=== PATIENT | female | born 1950 | race Caucasian/White ===

== ENCOUNTER 2020-02-21 14:27 | Inpatient (IN) | payer MEDICARE, OTHER ==
[~2020-02-21] VITALS: Ht 162.6 cm; Wt 77.2 kg
--- NOTE | 2020-02-21 15:15 | NUR ---
PATIENT ADMITED INTO ROOM 323, DIRECT ADMIT FROM 'S OFFICE. PATIENT HAS A SCHEDULED PERIPHERAL ANGIO GRAM TODAY. PATIENT HAS SEVERE PAD WITH CHRONIC WOUND TO [facility]. PATIENT IS A NON-COMPLIENT DIABETIC. PATIENT IS VERY UNFAMILIAR WITH HER MEDICATIONS AND IS UNABLE TO TELL ME WHEN SHE LAST TOOK THEM. ON ADMIT PATIENT WAS AWAKE AND ALERT TO PERSON AND PLACE. DURING ADMISSION, PATIENT BECAME MORE DROWSY AND LESS ORIENTED. PATIENT IS A POOR HISTORIAN. WHEN ASKED IF SHE HAD A HYSTERECTOMY PATIENT STATED, "WELL, I DIDN'T WANT KID". WHEN ASKED IF AGAIN FOR CLARIFICATION PATIENT STATED, "WELL, I THINK I DID". HOSPITALIST AT BEDSIDE. HAVING DIFFICULTY OBTAINING H&P. PATIENT LIVES ALONE. CALLED PCP OFFICE BUT IT WAS CLOSED. CALLED ORTHO SHE HAS HAD PREVIOUS SURGERY TO THE E IN 2008, NOT MUCH HISTORY AVAILABLE AND NO REPORTED MEDICATIONS OR ALLERGIES AT THAT TIME. PATIENT FALLING ASLEEP DURING QUESTIONS FROM HOSPITALIST ANDREW
[2020-02-21 15:16] VITALS: BP 134/75; PULSE 129; TEMP 97.9
[2020-02-21] MEDS ORDERED: ELIQUIS 5MG PO (15:28)
[2020-02-21] MEDS ORDERED: ASPIRIN 81M81 MG/TA2 PO (15:29)
[2020-02-21] MEDS ORDERED: LASIX 20MG TABL20 MG PO (15:30)
[2020-02-21] MEDS ORDERED: NEURONTIN300 MG/CAP PO (15:31)
[2020-02-21] MEDS ORDERED: XANAX 0.5MG0.5 MG PO (15:32)
[2020-02-21] MEDS ORDERED: NORCO 325 MG-7.1 TAB PO (15:33)
[2020-02-21] MEDS ORDERED: KLOR-CON M2020 MEQ PO (15:34)
[2020-02-21] MEDS ORDERED: COMBIGAN 0.2%-0.5 ML OU (15:35)
[2020-02-21] MEDS ORDERED: LANTUS SOLOS100 U/ML SQ (15:36)
[2020-02-21] MEDS ORDERED: TRAVATAN Z 2.52.5 ML OU (15:37)
[2020-02-21] MEDS ORDERED: NOVOLOG FLEX100 U/ML SQ (15:38)
[2020-02-21] MEDS ORDERED: LOPID 600M600 MG/TAB PO (15:39)
[2020-02-21] MEDS ORDERED: MEVACOR10 MG PO (15:43)
[2020-02-21 16:36] LABS: PH 5 (5-8); SQUAMOUS EPITHELIAL None Seen /hpf; URINE APPEARANCE Clear; URINE BACTERIA Rare /hpf; URINE BILIRUBIN Negative (NEGATIVE); URINE BLOOD 1+ (NEGATIVE); URINE COLOR Yellow; URINE GLUCOSE 3+ (NEGATIVE); URINE KETONE 2+ (NEGATIVE); URINE LEUKOCYTE ESTERASE Negative (NEGATIVE); URINE NITRATE Negative (NEGATIVE); URINE PROTEIN(semi-quant) 1+ (NEGATIVE); URINE UROBILINOGEN Negative (NEGATIVE)
[2020-02-21 16:44] LABS: BASO # 0.1 (0.0-0.2); BASO % 0.6 % (0.0-2.0); EOS % 0.2 % (0-4.0); GRAN # 11.1 (1.4-6.5); GRAN % 88.4 % (42.2-75.2); HEMATOCRIT 41.1 % (37.0-47.0); HEMOGLOBIN 14.3 g/dl (12.5-16.0); LYMPH # 0.7 (1.2-3.4); LYMPH % 5.4 % (20.0-51.0); MEAN CELL VOLUME 87 fl (80.0-100.0); MEAN CORPUSCULAR HEMOGLOBIN 30 pg (27.0-31.0); MEAN CORPUSCULAR HGB CONC 35 g/dl (33.0-37.0); MONO # 0.6 (0.1-0.6); MONO % 5.1 % (1.7-9.3); PLATELET COUNT 309 K/mm3 (130-400); REDCELL DISTRIBUTION WIDTH-CV 11.4 % (11.5-14.5)
[2020-02-21 16:49] LABS: INR 1.1 (0.8-3.0); PROTHROMBIN TIME 12.9 SECONDS (9.7-12.8)
[2020-02-21 16:56] LABS: ALBUMIN 4.3 gm/dL (3.5-5.0); BILIRUBIN,TOTAL 0.7 mg/dL (0.0-1.0); CALCIUM 9.5 mg/dL (8.4-10.2); CREATININE, serum 0.74 (0.52-1.25); POTASSIUM 4.2 mmol/L (3.4-5.0); TOTAL PROTEIN 7.7 gm/dL (6.4-8.2)
--- NOTE | 2020-02-21 17:30 | NUR ---
WENT IN TO START IV FLUIDS, NS AT 125 INFUSING VIA PUMP INTO LEFT WRIST IV. PATIENT IS INCREASINGLY CONFUSED. PATIENT ASKING ABOUT VOIDING, AND NOW HAS NO MEMORY OF HER FLOYD. ON ADMISSION PATIENT REPORTED SHE ASKED FOR THE FLOYD BEFORE THE PERIPHERAL ANGIO GRAM DONE TODAY IN THE OFFICE. PATIENT HAS BEEN INCONTINENT OF BOWL X2. PATIENT IS VERY DROWSY. HR IN 120'S ON TELE. ALL OTHER VSS. BS WAS 332 ON ADMIT. HGB A1C OF 9.7. SEE HOSPITALIST ORDERS
--- NOTE | 2020-02-21 17:45 | NUR ---
RT CALLED AND NOW AT BEDSIDE TO OBTAIN ABG'S. RADIOLOGY ALSO CALLED AND NOW AT BEDSIDE TO TAKE PATIENT TO RADIOLOGY FOR CXR AND CT
[2020-02-21 17:55] LABS: ARTERIAL BLD GAS O2 SATURATION 95.5 % (92-100); ARTERIAL BLD GAS TCO2 CT 22.3; ARTERIAL BLOOD GAS BASE EXCESS -0.7 (-2-2); ARTERIAL BLOOD GAS HCO3 21.4 meq/L (22-26); ARTERIAL BLOOD GAS PCO2 28.5 mmHg (35-45); ARTERIAL BLOOD GAS PO2 70.9 mmHg (80-100); ARTERIAL BLOOD GAS pH 7.49 (7.35-7.45)
--- NOTE | 2020-02-21 17:55 | NUR ---
CALLED HOSPITALIST ANDREW [facility]. PATIENT OFF FLOOR CURRENTLY FOR CT/CXR
[2020-02-21 18:57] LABS: TROPONIN-I < 0.012 ng/mL (0.000-0.035)
[2020-02-21 19:08] VITALS: BP 144/67; PULSE 125; TEMP 99.1
--- NOTE | 2020-02-21 20:35 | NUR ---
Pt doing ok. Is alert and mostly oriented. On tele, sinus tach between 120's-130's. Other vss. Pt here with ischemic RLE from dr smith office. Pt heart and lung sounds normal. bowel sounds aud all quad. Does have middleton in place, states it was placed at cardiology office. RLE partial amputation. LLE pulses present. Pt denies needs, call light within reach, will continue to monitor
[2020-02-21 22:26] LABS: COLLECTION METHOD CLEAN CATCH
[2020-02-22 00:28] VITALS: BP 155/79; PULSE 111; TEMP 97.8
--- NOTE | 2020-02-22 01:34 | NUR ---
Pt seems to be more a/o this shift. Sleeping in bed off/on. Denies needs. Call light within reach, will continue to monitor
[2020-02-22 03:22] VITALS: BP 150/77; PULSE 107; TEMP 97.8
[2020-02-22 06:55] LABS: BASO # 0.1 (0.0-0.2); BASO % 0.5 % (0.0-2.0); EOS # 0.4 (0.0-0.7); EOS % 3.4 % (0-4.0); GRAN # 8.9 (1.4-6.5); HEMATOCRIT 37.2 % (37.0-47.0); HEMOGLOBIN 12.6 g/dl (12.5-16.0); LYMPH # 1.3 (1.2-3.4); LYMPH % 10.8 % (20.0-51.0); MEAN CELL VOLUME 89 fl (80.0-100.0); MEAN CORPUSCULAR HEMOGLOBIN 30 pg (27.0-31.0); MEAN CORPUSCULAR HGB CONC 34 g/dl (33.0-37.0); MEAN PLATELET VOLUME 10.3 fl (7.4-10.4); MONO # 1.2 (0.1-0.6); MONO % 9.8 % (1.7-9.3); PLATELET COUNT 336 K/mm3 (130-400); REDCELL DISTRIBUTION WIDTH-CV 11.7 % (11.5-14.5)
[2020-02-22 07:04] LABS: CALCIUM 9.3 mg/dL (8.4-10.2); CREATININE, serum 0.56 (0.52-1.25); POTASSIUM 3.5 mmol/L (3.4-5.0)
[2020-02-22 07:44] VITALS: BP 166/90; PULSE 116; TEMP 97.8
--- NOTE | 2020-02-22 09:34 | NUR ---
Due to the patient's confusion, HUSSEIN contacted the patient's sister, Arianne ([phone]) to complete initial intake. The patient lives alone in [place]. The patient has a walker and wheelchair. The patient has a turfgrass management professor named Ramana that visits the patient 3x a day at 8:00am/1:00pm/6:00pm. Ramana cooks meals and assist with ADLs. The patient PCP is Dr. Alex and patient receives medications from [facility] in [place]. Arianne or Ramana picker and sorter load and unload the patient's medications. The patient does not have advanced directives in the EMR. Arianne states that there is paperwork in place that designates her and she is to fax it to the surgical floor, awaiting fax. Arianne reports the patient went to [facility] last year for an extended period of time. Arianne would like the patient to return there at discharge, if needed. HUSSEIN faxed referral to Anahy at [facility]. Will continue to monitor.
--- NOTE | 2020-02-22 10:01 | NUR ---
Patient resting in bed. Mri completed. rounded. Plan of care reviewed. He spoke with . He also notied Arianne her DPOA & sister
--- NOTE | 2020-02-22 10:55 | NUR ---
Anahy from [facility] reports they can follow the patient's care and can take her for skilled IF the patient does not require a wound vac after surgery. Will continue to monitor.
--- NOTE | 2020-02-22 11:08 | NUR ---
SW received the patient's DP- paperwork. The patient's sister, Rodo) Amanda and Briseida's , Ghanshyam Patel are both designated and the copy was placed in the patient's chart.
[2020-02-22 12:17] VITALS: BP 142/70; PULSE 116; TEMP 98.8
--- NOTE | 2020-02-22 12:47 | NUR ---
First visit from the ornament setter. No needs right now.
--- NOTE | 2020-02-22 14:30 | NUR ---
HUSSEIN met with the patient to discuss the referral to [facility] Goins wanted HUSSEIN to send. HUSSEIN informed the patient that [facility] would take her if she did not need a wound vac and she was agreeable. HUSSEIN contacted Briseida to inform her. Will continue to monitor.
[2020-02-22 16:47] VITALS: BP 162/74; PULSE 115; TEMP 98.6
--- NOTE | 2020-02-22 17:50 | NUR ---
Patient resting in bed. Her mentation has been appropriate. Insulin per orders, sugars remain elevated. Patient has had loose stools today. Pericare provdied as needed & new linens. Patient Coccyx is reddened & sore, zinc oxide ordered. Allyven foam in place. Cdiff sample resulted negative. Ivf per orders. Davis to DD. Scds. Right foot dressing dressed per patient request. She did not like the demarcus wrap, felt is was too tight. abd & kerlex in place. Patient has reported pain, tylenol for pain per orders.
--- NOTE | 2020-02-22 20:00 | NUR ---
Report received. 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 Assessment complete. VS stable. A&Ox3. Denies pain/shortness of breath/nausea. Up to commode with assistx2. Allevyn dressing to coccyx. Davis draining clear yellow urine. Refuses SCDs. IV to left wrist with NS@75mls/hr. Plan of care discussed for this shift to include bedside glucose/HS meds/NPO after midnight. Denies questions/concerns. Call light in reach. Will monitor.
[2020-02-22 20:35] VITALS: BP 151/79; PULSE 116; TEMP 98.2
--- NOTE | 2020-02-22 23:10 | NUR ---
Called c/o pain to right foot-rating 5/10 on pain scale-described as throbbing. Tylenol given per order. Will monitor.
[2020-02-23] VITALS (13 sets, daily range): BP systolic 125–160; BP diastolic 62–78; PULSE 102–115; TEMP 97.8–98.5
--- NOTE | 2020-02-23 05:50 | NUR ---
Rested off and on this shift. Did receive tylneol x2 this shift with good pain control. Has remained NPO after midnight for surgery except small sips of water for pills. Dressing to right lower extremity remains CDI. Pre meds given. Denies needs. Call light in reach. Will monitor.
--- NOTE | 2020-02-23 07:21 | NUR ---
Patient down to OR by bed.
[2020-02-23 07:33] LABS: BASO # 0.1 (0.0-0.2); BASO % 0.5 % (0.0-2.0); EOS # 0.3 (0.0-0.7); EOS % 2.4 % (0-4.0); GRAN % 74.9 % (42.2-75.2); HEMATOCRIT 37.4 % (37.0-47.0); HEMOGLOBIN 12.9 g/dl (12.5-16.0); LYMPH # 1.7 (1.2-3.4); LYMPH % 12.5 % (20.0-51.0); MEAN CELL VOLUME 87 fl (80.0-100.0); MEAN CORPUSCULAR HEMOGLOBIN 30 pg (27.0-31.0); MEAN CORPUSCULAR HGB CONC 35 g/dl (33.0-37.0); MONO # 1.2 (0.1-0.6); MONO % 9.2 % (1.7-9.3); PLATELET COUNT 344 K/mm3 (130-400); REDCELL DISTRIBUTION WIDTH-CV 11.4 % (11.5-14.5)
[2020-02-23 07:44] LABS: CALCIUM 9.1 mg/dL (8.4-10.2); CREATININE, serum 0.49 (0.52-1.25)
[2020-02-23 07:49] LABS: POTASSIUM 2.8 mmol/L (3.4-5.0)
--- NOTE | 2020-02-23 07:50 | NUR ---
Notified OR of critical potassium.
--- NOTE | 2020-02-23 10:05 | NUR ---
Patient up from OR by bed. Drowsy but aroures to voice and touch. Answers questions appropriately. Post op fluids infusing to left wrist IV. Post op VSS. Right lower extremity with demarcus wrap is CDI, elevated on pillows. Call light in reach. No further needs at this time. Will continue to monitor.
--- NOTE | 2020-02-23 15:30 | NUR ---
Contacted Catherine MORALES. Patient having loose stools. New orders entered.
[2020-02-23 16:18] LABS: CLOSTRIDIUM DIFF A/B NEG
[2020-02-23 16:19] LABS: CLOSTRIDIUM DIFF A/B INTERP No C.diff present
--- NOTE | 2020-02-23 18:47 | NUR ---
Patient has done well throughout the day after procedure. Tolerating diet without difficulties. [place] given for pain 8/10 sharp to RLE, states it feels like phantom pain as she can feel it in her toes. IV to INT. Davis maintined to dependent drainage with hazy yellow urine in bag. Has been up to comode x 2 this afternoon, up with walker, gait belt and assistance of x2. Denies further needs at this time. Reported off to processing tech.
[2020-02-24 03:54] VITALS: BP 144/73; PULSE 104; TEMP 98.7
--- NOTE | 2020-02-24 04:55 | NUR ---
PT IN BED. NORCO FOR PAIN. DRESSING/NKAIA TO RLE APPEARS CD&I. NO N/V. RLE ELEVATED ON PILLOWS.
[2020-02-24 07:32] VITALS: BP 130/61; PULSE 105; TEMP 98.1
[2020-02-24 07:34] LABS: BASO # 0.1 (0.0-0.2); BASO % 0.8 % (0.0-2.0); EOS # 0.5 (0.0-0.7); EOS % 4.1 % (0-4.0); GRAN # 7.4 (1.4-6.5); GRAN % 65.1 % (42.2-75.2); HEMOGLOBIN 12.4 g/dl (12.5-16.0); LYMPH # 2.2 (1.2-3.4); LYMPH % 19.6 % (20.0-51.0); MEAN CELL VOLUME 87 fl (80.0-100.0); MEAN CORPUSCULAR HEMOGLOBIN 31 pg (27.0-31.0); MEAN CORPUSCULAR HGB CONC 35 g/dl (33.0-37.0); MEAN PLATELET VOLUME 9.6 fl (7.4-10.4); MONO # 1.1 (0.1-0.6); PLATELET COUNT 372 K/mm3 (130-400); RED BLOOD COUNT 4.05 M/mm3 (4.10-5.30); REDCELL DISTRIBUTION WIDTH-CV 11.5 % (11.5-14.5)
[2020-02-24 07:38] LABS: HEMATOCRIT 35.3 % (37.0-47.0)
[2020-02-24 07:42] LABS: CALCIUM 8.9 mg/dL (8.4-10.2); CREATININE, serum 0.54 (0.52-1.25); POTASSIUM 3.4 mmol/L (3.4-5.0)
--- NOTE | 2020-02-24 09:40 | NUR ---
PATIENT RESTING IN BED THIS MORNING. PATIENT IS A&OX4. TACHYCARDIA NOTED, VSS. TELE IN PLACE. GENERALIZED WEAKNESS. RLE STUMP DRESSED WITH AN NAKIA WRAP DRESSING AND IS CD&I. POSITIVE POPLITEAL PULSE. EDEMA TO RLE. POSITIVE PEDAL PULSE TO LLE. TRACE EDEMA TO LEFT FOOT. LEFT GROIN DRESSED WITH GAUZE AND TEGADERM DRESSING. LEFT GROIN SITE IS SOFT AND NON-TENDER. MEPLEX DRESSING TO COCCYX IS CD&I. LEFT WRIST TO INT. INDWELLING FLOYD CATHETER TO DEPENDENT DRAINAGE WITH CLEAR YELLOW URINE PRESENT IN FLOYD BAG. CATHETER CARE PROVIDED. PATIENT COMPLAINING OF PHANTOM PAINS IN RIGHT CHUN. PATIENT DESCRIBES IT "ZINGING" IN NATURE. CALL LIGHT WITHIN REACH. NO OTHER NEEDS AT THIS TIME.
--- NOTE | 2020-02-24 10:00 | NUR ---
PATIENT COMPLAINING OF PHANTOM PAINS IN RLE AT A 8/10 ON A 0-10 SCALE. PATIENT GIVEN PRN DOSE OF NORCO. LEG ELEVATED ON PILLOW. NO OTHER NEEDS AT THIS TIME.
[2020-02-24 11:21] VITALS: BP 142/73; PULSE 94; TEMP 97.9
--- NOTE | 2020-02-24 11:36 | NUR ---
PATIENT STATES THAT HER PAIN IS NOW A 9 ON A 0-10 SCALE, AND THAT THE NORCO PROVIDED VERY LITTLE RELIEF. PATIENT GIVEN PRN PO DOSE OF TYLENOL. WILL CONTINUE TO MONITOR.
[2020-02-24 16:36] VITALS: BP 147/63; PULSE 102; TEMP 98.4
--- NOTE | 2020-02-24 16:52 | NUR ---
PATIENT RATING HER PAIN A 9 ON A 0-10 SCALE IN THE RLE. PATIENT DESCRIBES THE PAIN SHOOTING PAIN THAT WRAPS AROUND THE RIGHT CHUN. PATIENT GIVEN TWO TABLETS OF PRN NORCO. PATIENT REPOSITIONED AT THE EDGE OF THE BED. NO NEEDS AT THIS TIME.
--- NOTE | 2020-02-24 19:01 | NUR ---
REPORT GIVEN TO MORRO BARAJAS.
--- NOTE | 2020-02-24 19:30 | NUR ---
Report received. 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 Assessment complete. VS stable. A&Ox3-drowsy. Denies pain/shortness of breath/nausea. Left wrist INT flushes without difficulty. Davis cath will yellow urine-some sediment. Dressing to left xqdpk-[id number]-vhb drainage noted. Right lower extremity elevated on pillose-fresh ice pack applied. Dressing to right lower nxstipsif-[id number] white-CDI. Plan of care discussed for this shift to include repositioning/ pain meds/HS meds. Verbalizes understanding. Call light in reach. WIll monitor.
--- NOTE | 2020-02-24 19:45 | NUR ---
Called requesting pain medication-rating pain 10/10 on pain scale-described as constant ache/throbbing. Discussed timing for next norco-states she will take the tylenol. Tried to administer but sleeping-audible snore. Will monitor.
[2020-02-24 21:32] VITALS: BP 153/68; PULSE 105; TEMP 99
--- NOTE | 2020-02-24 21:50 | NUR ---
Called with c/o pain to right lower extremity. Described as sharp throbbing-rating 10/10 on pain scale. Katie two tabs given per dr order. Will monitor.
[2020-02-25 00:31] VITALS: BP 158/74; PULSE 106; TEMP 99
[2020-02-25 04:41] VITALS: BP 155/76; PULSE 113; TEMP 98.7
--- NOTE | 2020-02-25 05:00 | NUR ---
Rested well this shift. C/O pain x2-adequate control with PO pain meds. Tolerating diet. Denies shortness of breath/nausea. Dressing to right lower extremity-demarcus/bulky white-CDI. Elevated on pillows-refusing ice packs. INT to left wrist flushed without difficulty-no s/s of infiltration noted. Call light in reach. Will continue to monitor.
[2020-02-25 07:29] VITALS: BP 139/65; PULSE 118; TEMP 98.9
--- NOTE | 2020-02-25 08:39 | NUR ---
Patient resting in bed. Awaiting ortho to round & change her stump dressing. Patient did well with breakfast, denies nausea. Patient having phantom pain. Rle stump dressing CDI. Int. Susan to MARY GRACE
--- NOTE | 2020-02-25 10:11 | NUR ---
HUSSEIN faxed updates to Anahy at [facility]. PT/OT ordered for the patient. Will continue to monitor.
--- NOTE | 2020-02-25 11:04 | NUR ---
Susan Huffman per ortho. [facility] clinic notified & paperwork faxed per request for stump turn supervisor. Patient has been to the commode, passing flatus, requesting stool softners. Did reviewed with her that she was having such loose stool the day prior that we checked for Cdif, but she is insistant that she needs a softner. Patient coccyx is reddened. allyven foam in place. Int. Will monitor.
[2020-02-25 11:39] VITALS: BP 130/65; PULSE 104; TEMP 98.2
--- NOTE | 2020-02-25 14:58 | NUR ---
Patient request tylenol for pain. Given per request. She did well with lunch. Assisted with full bed bath.
--- NOTE | 2020-02-25 15:51 | NUR ---
Anahy, at [facility], reports that the clinical team would just want to see CBC, chemistry, vitals/weight updates prior to discharge tomorrow. SW to provide those to [facility] tomorrow. SW to continue to follow.
[2020-02-25 16:19] VITALS: BP 135/76; PULSE 116; TEMP 98
--- NOTE | 2020-02-25 17:56 | NUR ---
Patient sitting up in wheelchair eating dinner. Insulin per orders. She is voiding adequately & continues to have concerns about having a bowel movement. Rle dressing intact. Int
[2020-02-25 20:03] VITALS: BP 144/45; PULSE 110; TEMP 98.1
--- NOTE | 2020-02-25 20:45 | NUR ---
Pt. sitting up in bed at this time. Pt. is A&OX3, assessment complete. INT to lt. wrist patent. Dressing to lt. groin cdi. Pt. has stump bank note designer to rt. BKA site. Pt. reports pain at a 5 on pain scale, gave pain meds per orders. Pt. denies further needs, call light within reach.
[2020-02-26 00:13] VITALS: BP 132/62; PULSE 116; TEMP 98.5
[2020-02-26 04:36] VITALS: BP 143/63; PULSE 113; TEMP 98.3
[2020-02-26 05:32] LABS: BASO # 0.1 (0.0-0.2); BASO % 0.8 % (0.0-2.0); EOS # 0.4 (0.0-0.7); EOS % 3.2 % (0-4.0); GRAN # 7.8 (1.4-6.5); GRAN % 69.4 % (42.2-75.2); HEMATOCRIT 35.8 % (37.0-47.0); HEMOGLOBIN 12.3 g/dl (12.5-16.0); LYMPH % 17.5 % (20.0-51.0); MEAN CORPUSCULAR HEMOGLOBIN 30 pg (27.0-31.0); MEAN CORPUSCULAR HGB CONC 34 g/dl (33.0-37.0); MEAN PLATELET VOLUME 9.3 fl (7.4-10.4); MONO % 8.7 % (1.7-9.3); PLATELET COUNT 379 K/mm3 (130-400); RED BLOOD COUNT 4.14 M/mm3 (4.10-5.30); REDCELL DISTRIBUTION WIDTH-CV 11.5 % (11.5-14.5)
[2020-02-26 05:33] LABS: MEAN CELL VOLUME 87 fl (80.0-100.0)
[2020-02-26 05:42] LABS: CALCIUM 9.2 mg/dL (8.4-10.2); CREATININE, serum 0.63 (0.52-1.25); POTASSIUM 4.1 mmol/L (3.4-5.0)
--- NOTE | 2020-02-26 07:30 | NUR ---
changed dressing with ortho to right residual limb. stapels intact, small amount of drainage evident. Sterile 4x4's and stockinet applied, patient tolerated procedure moderately well. Patient sitting up at bedside at this time, denies further needs, call light within reach.
[2020-02-26 07:43] VITALS: BP 106/53; PULSE 110; TEMP 98.4
[2020-02-26] MEDS ORDERED: NORCO 325 MG-7.1 TAB PO (10:33)
[2020-02-26] MEDS ORDERED: XANAX 0.5MG0.5 MG PO (10:34)
[2020-02-26] MEDS ORDERED: TYLENOL 325MG325 MG PO (10:34)
[2020-02-26] MEDS ORDERED: MIRALAX PA17 GM/Dose PO (10:35)
[2020-02-26] MEDS ORDERED: COLACE 100100 MG/CAP PO (10:36)
[2020-02-26] MEDS ORDERED: SENNA-LAX8.6 MG PO (10:36)
--- NOTE | 2020-02-26 10:56 | NUR ---
SW presented the IM form to the patient. The patient understood and signed the form. The original was placed in the chart and copy was provided to the patient.
[2020-02-26 11:22] VITALS: BP 125/62; PULSE 95; TEMP 97.9
--- NOTE | 2020-02-26 11:53 | NUR ---
HUSSEIN faxed the discharge orders and COVID-19 assessment to Anahy at [facility]. Awaiting transportation time.
--- NOTE | 2020-02-26 12:19 | NUR ---
The patient is to discharge to [facility] today, 02/25 for a skilled stay. Anahy from [facility] they can transport the patient at 1245. SW informed the team and the patient's sister/DPOA-HC Briseida, all were in agreeance. There are no additional needs at this time.
--- NOTE | 2020-02-26 13:30 | NUR ---
Discharge report called to nurse at recieving facility. INT removed, catheter intact, hemostasis achieved. Patient confirmed all personal belongings had been gathered. Patient transported by recieving facility.
== END 2020-02-26 13:30 | DRG 240 ==
LOC: SURG 14:27 → MEDICAL 02-23 12:58 → SURG 02-23 12:58
PROVIDERS: Nurse Practitioner Family; Orthopaedic Surgery; Physician Assistant; ADMIT Student in an Organized Health Care Education/Training Program
PROC: 0Y6H0Z3 Detachment at Right Lower Leg, Low, Open Approach (ICD-10-PCS; principal; 2020-02-23 08:00)
DX: E11.52 Type 2 diabetes mellitus with diabetic peripheral angiopathy with gangrene (principal); L97.819 Non-pressure chronic ulcer of other part of right lower leg with unspecified severity; I70.261 Atherosclerosis of native arteries of extremities with gangrene, right leg; E11.65 Type 2 diabetes mellitus with hyperglycemia; I63.81 Other cerebral infarction due to occlusion or stenosis of small artery; I63.89 Other cerebral infarction; Z79.4 Long term (current) use of insulin; T87.53 Necrosis of amputation stump, right lower extremity; Z88.0 Allergy status to penicillin; E11.40 Type 2 diabetes mellitus with diabetic neuropathy, unspecified; F41.9 Anxiety disorder, unspecified; E78.5 Hyperlipidemia, unspecified; I10 Essential (primary) hypertension; Z79.82 Long term (current) use of aspirin; Z87.891 Personal history of nicotine dependence; Z89.411 Acquired absence of right great toe; H40.9 Unspecified glaucoma; R41.82 Altered mental status, unspecified; E87.6 Hypokalemia; R19.7 Diarrhea, unspecified; D72.829 Elevated white blood cell count, unspecified; K59.00 Constipation, unspecified; R00.0 Tachycardia, unspecified; L97.519 Non-pressure chronic ulcer of other part of right foot with unspecified severity
CPT/HCPCS: 99223-AI; 99231-AI; 99232-AI; 99239; A9585; J0690; J1815; J2250; J2370; J2704; J2795; J7030

== ENCOUNTER → 2020-07-15 | Outpatient (CLI) | payer MEDICARE, OTHER ==
[~2020-07-15] MED LIST: ASPIRIN 81M81 MG/TA2 PO; COLACE 100100 MG/CAP PO; COMBIGAN 0.2%-0.5 ML OU; ELIQUIS 5MG PO; KLOR-CON M2020 MEQ PO; LANTUS SOLOS100 U/ML SQ; LASIX 20MG TABL20 MG PO; LOPID 600M600 MG/TAB PO; MEVACOR10 MG PO; MIRALAX PA17 GM/Dose PO; NEURONTIN300 MG/CAP PO; NORCO 325 MG-7.1 TAB PO; NOVOLOG FLEX100 U/ML SQ; SENNA-LAX8.6 MG PO; TRAVATAN Z 2.52.5 ML OU; TYLENOL 325MG325 MG PO; XANAX 0.5MG0.5 MG PO
== END ==
LOC: EDSTATUS 07:30 → SURG 07:30 → COL.LAB 08:00 → SURG 09:30
DX: Z89.511 Acquired absence of right leg below knee (principal); Z20.828 Contact with and (suspected) exposure to other viral communicable diseases

== ENCOUNTER 2022-06-19 08:10 | Emergency (ER) | payer MEDICARE, OTHER ==
[~2022-06-19] VITALS: Ht 167.6 cm; Wt 78.2 kg
[2022-06-19 08:13] VITALS: TEMP 98
[2022-06-19 09:35] VITALS: BP 134/81; PULSE 106
[2022-06-20] MEDS ORDERED: CEPHALEXIN500 M1 PO (14:45)
[2022-06-20] MEDS ORDERED: NORCO 325 MG-51 TAB PO (14:48)
== END 2022-06-19 10:03 | disposition home or self-care (01) ==
LOC: COL.ER 08:10
DX: S09.90XA Unspecified injury of head, initial encounter (principal); E11.65 Type 2 diabetes mellitus with hyperglycemia; V00.811A Fall from moving wheelchair (powered), initial encounter
CPT/HCPCS: J1815

== ENCOUNTER 2022-06-20 11:07 | Emergency (ER) | payer MEDICARE, OTHER ==
[~2022-06-20] VITALS: Ht 162.6 cm; Wt 78.2 kg
[2022-06-20 12:26] LABS: BASO % 0.3 % (0.0-2.0); EOS % 0.1 % (0.0-4.0); GRAN # 10.4 K/mm3 (1.4-6.5); GRAN % 83.1 % (42.2-75.2); LYMPH # 1.1 K/mm3 (1.2-3.4); LYMPH % 8.8 % (20.0-51.0); MEAN CELL VOLUME 92 fl (80.0-100.0); MEAN CORPUSCULAR HEMOGLOBIN 31 pg (27-31); MEAN CORPUSCULAR HGB CONC 34 g/dl (33.0-37.0); MEAN PLATELET VOLUME 10.4 fl (7.4-10.4); MONO # 0.9 K/mm3 (0.1-0.6); MONO % 7.1 % (1.7-9.3); PLATELET COUNT 276 K/mm3 (130-400); RED BLOOD COUNT 5.11 M/mm3 (4.10-5.30); REDCELL DISTRIBUTION WIDTH-CV 11.5 % (11.5-14.5)
[2022-06-20 12:30] LABS: ALBUMIN 3.5 gm/dL (3.4-4.8); CALCIUM 9.4 mg/dL (8.4-10.2); CREATININE, serum 0.78 mg/dL (0.57-1.11); TOTAL PROTEIN 7.3 gm/dL (6.2-8.1)
[2022-06-20 13:48] LABS: COLLECTION METHOD CATHETER
[2022-06-20 14:06] LABS: BUDDING YEAST Present (NOT PRESENT); SQUAMOUS EPITHELIAL 0-2 /hpf (0-10); URINE BACTERIA None Seen /hpf (NONE SEEN)
[2022-06-20 14:08] LABS: PH 7 (5-8); URINE APPEARANCE Clear (CLEAR/HAZY); URINE COLOR Yellow (YELLOW)
[2022-06-20 14:09] LABS: URINE GLUCOSE 4+ (NEGATIVE); URINE KETONE Trace (NEGATIVE); URINE NITRATE Negative (NEGATIVE); URINE PROTEIN(semi-quant) 1+ (NEGATIVE); URINE UROBILINOGEN Negative (NEGATIVE)
[2022-06-20 14:10] LABS: URINE BLOOD 1+ (NEGATIVE)
[2022-06-20] MEDS ORDERED: CEPHALEXIN500 M1 PO (14:45)
[2022-06-20] MEDS ORDERED: NORCO 325 MG-51 TAB PO (14:48)
[2022-06-20 15:21] VITALS: BP 197/105; PULSE 118; TEMP 98.9
== END 2022-06-20 15:25 | disposition home or self-care (01) ==
LOC: COL.ER 11:07
PROVIDERS: Physician Assistant
DX: S72.401A Unspecified fracture of lower end of right femur, initial encounter for closed fracture (principal); N39.0 Urinary tract infection, site not specified; Z89.511 Acquired absence of right leg below knee; Z79.2 Long term (current) use of antibiotics; W05.0XXA Fall from non-moving wheelchair, initial encounter
CPT/HCPCS: J0696; J7030

== ENCOUNTER 2022-07-07 15:22 | Inpatient (IN) | payer MEDICARE, OTHER ==
[~2022-07-07] VITALS: Ht 162.6 cm; Wt 81.4 kg
[~2022-07-07 15:22] MED LIST changes: +CEPHALEXIN500 M1 PO; +NORCO 325 MG-51 TAB PO
[2022-07-07 15:54] LABS: BASO # 0.1 K/mm3 (0.0-0.2); BASO % 0.7 % (0.0-2.0); EOS # 0.3 K/mm3 (0.0-0.7); EOS % 2.3 % (0.0-4.0); GRAN # 8.1 K/mm3 (1.4-6.5); GRAN % 68.4 % (42.2-75.2); HEMATOCRIT 39.4 % (37.0-47.0); HEMOGLOBIN 13.6 g/dl (12.5-16.0); LYMPH # 2.4 K/mm3 (1.2-3.4); LYMPH % 20.5 % (20.0-51.0); MEAN CELL VOLUME 90 fl (80.0-100.0); MEAN CORPUSCULAR HEMOGLOBIN 31 pg (27-31); MEAN CORPUSCULAR HGB CONC 35 g/dl (33.0-37.0); MEAN PLATELET VOLUME 9.9 fl (7.4-10.4); MONO # 0.9 K/mm3 (0.1-0.6); MONO % 7.7 % (1.7-9.3); PLATELET COUNT 431 K/mm3 (130-400); RED BLOOD COUNT 4.37 M/mm3 (4.10-5.30); REDCELL DISTRIBUTION WIDTH-CV 11.2 % (11.5-14.5)
[2022-07-07 16:04] LABS: ALBUMIN 3.2 gm/dL (3.4-4.8); BILIRUBIN,TOTAL 0.5 mg/dL (0.2-1.2); CALCIUM 9.8 mg/dL (8.4-10.2); CREATININE, serum 0.76 mg/dL (0.57-1.11); POTASSIUM 3.7 mmol/L (3.5-4.5)
[2022-07-07 16:27] LABS: COLLECTION METHOD CLEAN CATCH
[2022-07-07 16:56] LABS: URINE BACTERIA Rare /hpf (NONE SEEN); URINE RBC 0-2 /hpf (0-2)
[2022-07-07 16:59] LABS: URINE APPEARANCE Clear (CLEAR/HAZY); URINE COLOR Yellow (YELLOW); URINE GLUCOSE Negative (NEGATIVE); URINE KETONE Negative (NEGATIVE); URINE PROTEIN(semi-quant) Negative (NEGATIVE)
[2022-07-07 17:00] LABS: URINE BLOOD 2+ (NEGATIVE); URINE NITRATE Negative (NEGATIVE); URINE UROBILINOGEN 0.2 E.U/dL (0.2-1.0)
[2022-07-07] MEDS ORDERED: MIRALAX PA17 GM/Dose PO (19:25)
[2022-07-07] MEDS ORDERED: ZYRTEC 10MG10 MG PO (19:28)
[2022-07-07] MEDS ORDERED: NORCO 325 MG-101 TAB PO (19:30)
[2022-07-07] MEDS ORDERED: B COMPLEX #11 TA1 PO (19:31)
[2022-07-07] MEDS ORDERED: XANAX 0.5MG0.5 MG PO (19:32)
[2022-07-07 19:47] VITALS: BP 139/45; PULSE 109; TEMP 97
[2022-07-07 23:47] VITALS: BP 124/52; PULSE 120; TEMP 98.8
[2022-07-08 04:31] VITALS: BP 153/50; PULSE 122; TEMP 98.7
[2022-07-08 06:52] LABS: BASO # 0.1 K/mm3 (0.0-0.2); BASO % 0.7 % (0.0-2.0); EOS # 0.3 K/mm3 (0.0-0.7); EOS % 2.5 % (0.0-4.0); GRAN # 9.7 K/mm3 (1.4-6.5); HEMATOCRIT 37.4 % (37.0-47.0); HEMOGLOBIN 12.8 g/dl (12.5-16.0); LYMPH # 1.4 K/mm3 (1.2-3.4); LYMPH % 10.7 % (20.0-51.0); MEAN CELL VOLUME 92 fl (80.0-100.0); MEAN CORPUSCULAR HEMOGLOBIN 31 pg (27-31); MEAN CORPUSCULAR HGB CONC 34 g/dl (33.0-37.0); MEAN PLATELET VOLUME 10.2 fl (7.4-10.4); MONO # 1.1 K/mm3 (0.1-0.6); MONO % 8.6 % (1.7-9.3); PLATELET COUNT 374 K/mm3 (130-400); RED BLOOD COUNT 4.07 M/mm3 (4.10-5.30); REDCELL DISTRIBUTION WIDTH-CV 11.4 % (11.5-14.5)
[2022-07-08 07:05] LABS: ALBUMIN 2.9 gm/dL (3.4-4.8); BILIRUBIN,TOTAL 0.6 mg/dL (0.2-1.2); CALCIUM 8.9 mg/dL (8.4-10.2); CREATININE, serum 0.65 mg/dL (0.57-1.11); TOTAL PROTEIN 5.9 gm/dL (6.2-8.1)
[2022-07-08 07:26] VITALS: BP 137/57; PULSE 124; TEMP 98.8
[2022-07-08 11:08] VITALS: BP 126/60; PULSE 108; TEMP 98.6
[2022-07-08 15:09] VITALS: BP 147/73; PULSE 118; TEMP 99
[2022-07-08 20:08] VITALS: BP 138/70; PULSE 119; TEMP 98
[2022-07-09] VITALS (7 sets, daily range): BP systolic 105–163; BP diastolic 51–84; PULSE 109–126; TEMP 97.7–99.2
[2022-07-09 06:35] LABS: BASO # 0.1 K/mm3 (0.0-0.2); EOS # 0.3 K/mm3 (0.0-0.7); EOS % 2.8 % (0.0-4.0); GRAN # 8.4 K/mm3 (1.4-6.5); GRAN % 77.8 % (42.2-75.2); HEMATOCRIT 39.3 % (37.0-47.0); LYMPH # 1.1 K/mm3 (1.2-3.4); LYMPH % 10.6 % (20.0-51.0); MEAN CELL VOLUME 94 fl (80.0-100.0); MEAN CORPUSCULAR HEMOGLOBIN 31 pg (27-31); MEAN CORPUSCULAR HGB CONC 33 g/dl (33.0-37.0); MEAN PLATELET VOLUME 10.3 fl (7.4-10.4); MONO # 0.8 K/mm3 (0.1-0.6); MONO % 7.4 % (1.7-9.3); PLATELET COUNT 338 K/mm3 (130-400); RED BLOOD COUNT 4.18 M/mm3 (4.10-5.30); REDCELL DISTRIBUTION WIDTH-CV 11.5 % (11.5-14.5)
[2022-07-09 06:48] LABS: ALBUMIN 2.8 gm/dL (3.4-4.8); BILIRUBIN,TOTAL 0.7 mg/dL (0.2-1.2); CREATININE, serum 0.76 mg/dL (0.57-1.11); POTASSIUM 3.5 mmol/L (3.5-4.5); TOTAL PROTEIN 6.2 gm/dL (6.2-8.1)
[2022-07-10 03:28] VITALS: BP 136/64; PULSE 108; TEMP 98.3
[2022-07-10 07:04] LABS: BASO # 0.1 K/mm3 (0.0-0.2); BASO % 0.9 % (0.0-2.0); EOS # 0.5 K/mm3 (0.0-0.7); EOS % 5.2 % (0.0-4.0); GRAN # 6.3 K/mm3 (1.4-6.5); GRAN % 67.4 % (42.2-75.2); HEMATOCRIT 39.2 % (37.0-47.0); HEMOGLOBIN 13.1 g/dl (12.5-16.0); LYMPH # 1.5 K/mm3 (1.2-3.4); LYMPH % 16.4 % (20.0-51.0); MEAN CELL VOLUME 93 fl (80.0-100.0); MEAN CORPUSCULAR HEMOGLOBIN 31 pg (27-31); MEAN CORPUSCULAR HGB CONC 33 g/dl (33.0-37.0); MEAN PLATELET VOLUME 10.4 fl (7.4-10.4); MONO # 0.9 K/mm3 (0.1-0.6); MONO % 9.7 % (1.7-9.3); PLATELET COUNT 314 K/mm3 (130-400); RED BLOOD COUNT 4.23 M/mm3 (4.10-5.30); REDCELL DISTRIBUTION WIDTH-CV 11.5 % (11.5-14.5)
[2022-07-10 07:41] VITALS: BP 126/57; PULSE 102; TEMP 98.1
[2022-07-10 10:25] LABS: CALCIUM 9.2 mg/dL (8.4-10.2); CREATININE, serum 0.81 mg/dL (0.57-1.11); MAGNESIUM 1.8 mg/dL (1.6-2.6); POTASSIUM 3.8 mmol/L (3.5-4.5)
[2022-07-10 12:00] VITALS: BP 106/58; PULSE 68; TEMP 98
[2022-07-10 16:09] VITALS: BP 130/55; PULSE 102; TEMP 98
[2022-07-10 19:56] VITALS: BP 123/57; PULSE 105; TEMP 98.1
[2022-07-10 23:45] VITALS: BP 136/56; PULSE 108; TEMP 98
[2022-07-11 04:12] VITALS: BP 134/50; PULSE 102; TEMP 98
[2022-07-11 06:42] LABS: BASO # 0.1 K/mm3 (0.0-0.2); EOS # 0.4 K/mm3 (0.0-0.7); EOS % 4.2 % (0.0-4.0); GRAN # 6.3 K/mm3 (1.4-6.5); GRAN % 72.1 % (42.2-75.2); HEMATOCRIT 38.6 % (37.0-47.0); HEMOGLOBIN 13.4 g/dl (12.5-16.0); LYMPH # 1.2 K/mm3 (1.2-3.4); LYMPH % 13.8 % (20.0-51.0); MEAN CELL VOLUME 91 fl (80.0-100.0); MEAN CORPUSCULAR HEMOGLOBIN 32 pg (27-31); MEAN CORPUSCULAR HGB CONC 35 g/dl (33.0-37.0); MONO # 0.8 K/mm3 (0.1-0.6); MONO % 8.6 % (1.7-9.3); PLATELET COUNT 342 K/mm3 (130-400); RED BLOOD COUNT 4.25 M/mm3 (4.10-5.30); REDCELL DISTRIBUTION WIDTH-CV 11.4 % (11.5-14.5)
[2022-07-11 07:02] LABS: CALCIUM 9.3 mg/dL (8.4-10.2); CREATININE, serum 0.85 mg/dL (0.57-1.11); MAGNESIUM 1.9 mg/dL (1.6-2.6); POTASSIUM 4.1 mmol/L (3.5-4.5)
[2022-07-11 08:56] VITALS: BP 130/52; PULSE 55; TEMP 97.6
[2022-07-11 11:47] VITALS: BP 154/68; PULSE 95; TEMP 97.9
[2022-07-11 16:06] VITALS: BP 145/67; PULSE 100; TEMP 97.9
[2022-07-11 19:30] VITALS: BP 135/38; PULSE 63; TEMP 100.3
[2022-07-11 20:27] VITALS: BP 146/61; PULSE 105; TEMP 98
[2022-07-12] VITALS (7 sets, daily range): BP systolic 129–149; BP diastolic 54–68; PULSE 94–106; TEMP 97.5–99
[2022-07-12 06:32] LABS: BASO # 0.1 K/mm3 (0.0-0.2); BASO % 1.2 % (0.0-2.0); EOS # 0.5 K/mm3 (0.0-0.7); EOS % 5.3 % (0.0-4.0); GRAN # 6.4 K/mm3 (1.4-6.5); HEMATOCRIT 39.1 % (37.0-47.0); HEMOGLOBIN 13.2 g/dl (12.5-16.0); LYMPH # 1.6 K/mm3 (1.2-3.4); LYMPH % 16.7 % (20.0-51.0); MEAN CELL VOLUME 92 fl (80.0-100.0); MEAN CORPUSCULAR HEMOGLOBIN 31 pg (27-31); MEAN CORPUSCULAR HGB CONC 34 g/dl (33.0-37.0); MEAN PLATELET VOLUME 10.1 fl (7.4-10.4); MONO # 0.9 K/mm3 (0.1-0.6); MONO % 9.6 % (1.7-9.3); PLATELET COUNT 347 K/mm3 (130-400); RED BLOOD COUNT 4.23 M/mm3 (4.10-5.30); REDCELL DISTRIBUTION WIDTH-CV 11.5 % (11.5-14.5)
[2022-07-12 06:58] LABS: CALCIUM 9.5 mg/dL (8.4-10.2); CREATININE, serum 0.81 mg/dL (0.57-1.11); MAGNESIUM 1.9 mg/dL (1.6-2.6); POTASSIUM 3.8 mmol/L (3.5-4.5)
[2022-07-13 02:56] VITALS: BP 151/65; PULSE 96; TEMP 98
[2022-07-13 04:55] LABS: BASO # 0.1 K/mm3 (0.0-0.2); BASO % 1.1 % (0.0-2.0); EOS # 0.5 K/mm3 (0.0-0.7); EOS % 5.3 % (0.0-4.0); GRAN # 5.3 K/mm3 (1.4-6.5); GRAN % 60.7 % (42.2-75.2); HEMATOCRIT 39.1 % (37.0-47.0); LYMPH # 2.1 K/mm3 (1.2-3.4); LYMPH % 23.7 % (20.0-51.0); MEAN CELL VOLUME 93 fl (80.0-100.0); MEAN CORPUSCULAR HEMOGLOBIN 31 pg (27-31); MEAN CORPUSCULAR HGB CONC 33 g/dl (33.0-37.0); MEAN PLATELET VOLUME 10.4 fl (7.4-10.4); MONO # 0.8 K/mm3 (0.1-0.6); MONO % 8.9 % (1.7-9.3); PLATELET COUNT 344 K/mm3 (130-400); RED BLOOD COUNT 4.21 M/mm3 (4.10-5.30); REDCELL DISTRIBUTION WIDTH-CV 11.7 % (11.5-14.5)
[2022-07-13 05:09] LABS: CALCIUM 9.3 mg/dL (8.4-10.2); CREATININE, serum 0.83 mg/dL (0.57-1.11); MAGNESIUM 1.8 mg/dL (1.6-2.6); POTASSIUM 3.9 mmol/L (3.5-4.5)
[2022-07-13 07:37] VITALS: BP 160/71; PULSE 95; TEMP 97.9
[2022-07-13 11:19] VITALS: BP 139/64; PULSE 104; TEMP 97.7
[2022-07-13 16:16] VITALS: BP 106/69; PULSE 102; TEMP 98.2
[2022-07-13 19:55] VITALS: BP 141/64; PULSE 103; TEMP 98.8
[2022-07-14 00:11] VITALS: BP 136/74; PULSE 96; TEMP 98
[2022-07-14 05:27] VITALS: BP 123/58; PULSE 107; TEMP 98
[2022-07-14 06:49] LABS: BASO # 0.1 K/mm3 (0.0-0.2); EOS # 0.4 K/mm3 (0.0-0.7); EOS % 4.1 % (0.0-4.0); GRAN % 68.1 % (42.2-75.2); HEMATOCRIT 38.4 % (37.0-47.0); HEMOGLOBIN 12.7 g/dl (12.5-16.0); LYMPH # 1.7 K/mm3 (1.2-3.4); LYMPH % 16.2 % (20.0-51.0); MEAN CELL VOLUME 94 fl (80.0-100.0); MEAN CORPUSCULAR HEMOGLOBIN 31 pg (27-31); MEAN CORPUSCULAR HGB CONC 33 g/dl (33.0-37.0); MEAN PLATELET VOLUME 10.4 fl (7.4-10.4); MONO # 1.1 K/mm3 (0.1-0.6); MONO % 10.3 % (1.7-9.3); PLATELET COUNT 334 K/mm3 (130-400); RED BLOOD COUNT 4.08 M/mm3 (4.10-5.30); REDCELL DISTRIBUTION WIDTH-CV 11.8 % (11.5-14.5)
[2022-07-14 07:00] VITALS: BP 105/61; PULSE 107; TEMP 98.5
[2022-07-14 07:06] LABS: CALCIUM 9.3 mg/dL (8.4-10.2); CREATININE, serum 2.38 mg/dL (0.57-1.11); POTASSIUM 4.7 mmol/L (3.5-4.5)
[2022-07-14 08:42] LABS: CALCIUM 9.3 mg/dL (8.4-10.2); CREATININE, serum 2.53 mg/dL (0.57-1.11)
[2022-07-14 11:40] VITALS: BP 138/57; PULSE 96; TEMP 99
[2022-07-14 16:08] VITALS: BP 127/55; PULSE 90; TEMP 99.2
[2022-07-14 20:57] VITALS: BP 134/67; PULSE 97; TEMP 98.5
[2022-07-15 00:39] VITALS: BP 149/62; PULSE 97; TEMP 99
[2022-07-15 04:31] VITALS: BP 128/65; PULSE 89; TEMP 97.8
[2022-07-15 06:24] LABS: BASO # 0.1 K/mm3 (0.0-0.2); BASO % 0.8 % (0.0-2.0); EOS # 0.5 K/mm3 (0.0-0.7); EOS % 5.4 % (0.0-4.0); GRAN # 5.3 K/mm3 (1.4-6.5); GRAN % 63.2 % (42.2-75.2); HEMOGLOBIN 11.4 g/dl (12.5-16.0); LYMPH # 1.8 K/mm3 (1.2-3.4); MEAN CELL VOLUME 93 fl (80.0-100.0); MEAN CORPUSCULAR HEMOGLOBIN 32 pg (27-31); MEAN CORPUSCULAR HGB CONC 34 g/dl (33.0-37.0); MEAN PLATELET VOLUME 10.4 fl (7.4-10.4); MONO # 0.8 K/mm3 (0.1-0.6); MONO % 9.2 % (1.7-9.3); PLATELET COUNT 298 K/mm3 (130-400); RED BLOOD COUNT 3.62 M/mm3 (4.10-5.30); REDCELL DISTRIBUTION WIDTH-CV 11.7 % (11.5-14.5)
[2022-07-15 06:30] LABS: HEMATOCRIT 33.5 % (37.0-47.0)
[2022-07-15 06:41] LABS: CALCIUM 8.8 mg/dL (8.4-10.2); CREATININE, serum 2.98 mg/dL (0.57-1.11); POTASSIUM 4.5 mmol/L (3.5-4.5)
[2022-07-15 07:59] VITALS: BP 139/78; PULSE 95; TEMP 98.5
[2022-07-15 11:51] VITALS: BP 143/62; PULSE 84; TEMP 97.8
[2022-07-15 16:39] VITALS: BP 158/84; PULSE 69; TEMP 97.5
[2022-07-15 17:45] LABS: CREATININE, serum 2.3 mg/dL (0.57-1.11)
[2022-07-15 17:46] LABS: FRACTIONAL EXCRETION OF NA+ 4.16 %
[2022-07-15 20:31] VITALS: BP 156/79; PULSE 98; TEMP 98.1
[2022-07-16] VITALS (7 sets, daily range): BP systolic 141–171; BP diastolic 53–72; PULSE 86–108; TEMP 97.3–99
[2022-07-16 11:51] LABS: BASO # 0.1 K/mm3 (0.0-0.2); BASO % 0.7 % (0.0-2.0); EOS # 0.3 K/mm3 (0.0-0.7); GRAN # 5.8 K/mm3 (1.4-6.5); GRAN % 72.1 % (42.2-75.2); HEMOGLOBIN 11.1 g/dl (12.5-16.0); LYMPH # 1.2 K/mm3 (1.2-3.4); LYMPH % 15.3 % (20.0-51.0); MEAN CELL VOLUME 93 fl (80.0-100.0); MEAN CORPUSCULAR HEMOGLOBIN 32 pg (27-31); MEAN CORPUSCULAR HGB CONC 34 g/dl (33.0-37.0); MEAN PLATELET VOLUME 10.1 fl (7.4-10.4); MONO # 0.6 K/mm3 (0.1-0.6); MONO % 7.8 % (1.7-9.3); PLATELET COUNT 307 K/mm3 (130-400); RED BLOOD COUNT 3.52 M/mm3 (4.10-5.30); REDCELL DISTRIBUTION WIDTH-CV 11.8 % (11.5-14.5)
[2022-07-16 11:52] LABS: HEMATOCRIT 32.6 % (37.0-47.0)
[2022-07-16 12:04] LABS: CREATININE, serum 2.68 mg/dL (0.57-1.11); POTASSIUM 4.4 mmol/L (3.5-4.5)
[2022-07-17 03:48] VITALS: BP 160/55; PULSE 111; TEMP 98.2
[2022-07-17 06:54] LABS: BASO # 0.1 K/mm3 (0.0-0.2); BASO % 0.9 % (0.0-2.0); EOS # 0.2 K/mm3 (0.0-0.7); EOS % 2.6 % (0.0-4.0); GRAN # 6.7 K/mm3 (1.4-6.5); GRAN % 77.3 % (42.2-75.2); HEMATOCRIT 38.2 % (37.0-47.0); LYMPH % 11.3 % (20.0-51.0); MEAN CELL VOLUME 92 fl (80.0-100.0); MEAN CORPUSCULAR HEMOGLOBIN 32 pg (27-31); MEAN CORPUSCULAR HGB CONC 35 g/dl (33.0-37.0); MEAN PLATELET VOLUME 10.4 fl (7.4-10.4); MONO # 0.7 K/mm3 (0.1-0.6); MONO % 7.6 % (1.7-9.3); PLATELET COUNT 295 K/mm3 (130-400); RED BLOOD COUNT 4.15 M/mm3 (4.10-5.30); REDCELL DISTRIBUTION WIDTH-CV 11.7 % (11.5-14.5)
[2022-07-17 07:18] LABS: CALCIUM 9.3 mg/dL (8.4-10.2); CREATININE, serum 2.49 mg/dL (0.57-1.11); POTASSIUM 4.3 mmol/L (3.5-4.5)
[2022-07-17 07:31] LABS: HEMOGLOBIN 13.3 g/dl (12.5-16.0)
[2022-07-17 07:56] VITALS: BP 179/77; PULSE 125; TEMP 99; TEMP 99.4
[2022-07-17 12:00] VITALS: BP 145/76; PULSE 84; TEMP 99
[2022-07-17 16:24] VITALS: BP 140/71; PULSE 91; TEMP 98.5
[2022-07-17 20:53] VITALS: BP 154/75; PULSE 94; TEMP 98.8
[2022-07-18 00:29] VITALS: BP 164/68; PULSE 97; TEMP 99.1
[2022-07-18 04:40] VITALS: BP 154/87; PULSE 103; TEMP 97.7
[2022-07-18 06:42] LABS: ALBUMIN 2.5 gm/dL (3.4-4.8); CALCIUM 9.1 mg/dL (8.4-10.2); CREATININE, serum 2.26 mg/dL (0.57-1.11); PHOSPHOROUS 4.3 mg/dL (2.3-4.7); POTASSIUM 3.8 mmol/L (3.5-4.5)
[2022-07-18 07:39] VITALS: BP 171/73; PULSE 106; TEMP 99.4
[2022-07-18 11:28] VITALS: BP 151/76; PULSE 76; TEMP 97.6
[2022-07-18] MEDS ORDERED: LEVEMIR FLEX100 U/ML SQ (15:22)
[2022-07-18] MEDS ORDERED: AMOXICILLIN 50500 MG PO (15:33)
[2022-07-18] MEDS ORDERED: NORVASC 5MG5 MG/TAB PO (15:33)
[2022-07-18] MEDS ORDERED: CEFTIN500 MG PO (15:33)
[2022-07-18] MEDS ORDERED: NORCO 325 MG-101 TAB PO (15:33)
[2022-07-18 16:00] VITALS: BP 143/58; PULSE 88; TEMP 98
== END 2022-07-18 17:30 | DRG 872 ==
LOC: COL.ER 15:22 → MEDICAL 17:17
PROVIDERS: Emergency Medicine; Internal Medicine; Physician Assistant; Registered Nurse; ADMIT Hospitalist
PROC: 02HV33Z Insertion of Infusion Device into Superior Vena Cava, Percutaneous Approach (ICD-10-PCS; principal; 2022-07-12)
DX: A41.9 Sepsis, unspecified organism (principal); S72.402A Unspecified fracture of lower end of left femur, initial encounter for closed fracture; L03.317 Cellulitis of buttock; L03.116 Cellulitis of left lower limb; M46.28 Osteomyelitis of vertebra, sacral and sacrococcygeal region; L02.415 Cutaneous abscess of right lower limb; N17.9 Acute kidney failure, unspecified; L97.329 Non-pressure chronic ulcer of left ankle with unspecified severity; L97.429 Non-pressure chronic ulcer of left heel and midfoot with unspecified severity; Z66 Do not resuscitate; I10 Essential (primary) hypertension; E78.5 Hyperlipidemia, unspecified; Z96.651 Presence of right artificial knee joint; E11.51 Type 2 diabetes mellitus with diabetic peripheral angiopathy without gangrene; F41.9 Anxiety disorder, unspecified; F17.210 Nicotine dependence, cigarettes, uncomplicated; E83.52 Hypercalcemia; E11.649 Type 2 diabetes mellitus with hypoglycemia without coma; E87.6 Hypokalemia; E11.40 Type 2 diabetes mellitus with diabetic neuropathy, unspecified; B96.20 Unspecified Escherichia coli [E. coli] as the cause of diseases classified elsewhere; L98.429 Non-pressure chronic ulcer of back with unspecified severity; B96.4 Proteus (mirabilis) (morganii) as the cause of diseases classified elsewhere; E11.65 Type 2 diabetes mellitus with hyperglycemia; L89.310 Pressure ulcer of right buttock, unstageable; W18.39XA Other fall on same level, initial encounter; B95.2 Enterococcus as the cause of diseases classified elsewhere; B37.9 Candidiasis, unspecified; Z79.4 Long term (current) use of insulin; Z90.49 Acquired absence of other specified parts of digestive tract; Z86.73 Personal history of transient ischemic attack (TIA), and cerebral infarction without residual deficits; Z79.01 Long term (current) use of anticoagulants; Z79.82 Long term (current) use of aspirin; Y93.89 Activity, other specified; Y92.89 Other specified places as the place of occurrence of the external cause
CPT/HCPCS: 99231-AI; 99232-AI; 99233-AI; 99239; A4314; C1751; J1170; J1644; J1650; J1815; J2270; J2543; J3370; J7030; J7040; J7042; J7050; Q9967

== ENCOUNTER → 2022-07-26 | Outpatient (CLI) | payer MEDICARE, OTHER ==
[~2022-07-26] MED LIST changes: +AMOXICILLIN 50500 MG PO; +B COMPLEX #11 TA1 PO; +CEFTIN500 MG PO; +LEVEMIR FLEX100 U/ML SQ; +NORCO 325 MG-101 TAB PO; +NORVASC 5MG5 MG/TAB PO; +ZYRTEC 10MG10 MG PO
[2022-07-26 13:09] LABS: CALCIUM 9.5 mg/dL (8.4-10.2); CREATININE, serum 1.87 mg/dL (0.57-1.11); POTASSIUM 4.1 mmol/L (3.5-4.5)
== END ==
LOC: ZCOL.LAB 11:40
PROVIDERS: Internal Medicine
DX: N17.9 Acute kidney failure, unspecified (principal)